=== PATIENT | male | born 1935 | race Caucasian/White ===

== ENCOUNTER → 2016-04-17 | Day surgery (SDC) | payer MEDICARE, BC ==
[~2016-04-17] VITALS: Ht 188 cm; Wt 100.3 kg
[~2016-04-17] MED LIST: ASPIRIN325 MG PO; CHILDREN'S CHEW81 MG PO; DELTASONE5 MG PO; DITROPAN5 MG PO; LIPITOR80 MG PO; LOPRESSOR25 MG PO; MULTI VITAMIN1 EACH PO; PLAVIX75 MG PO; PROTANDIM NRF PO; TYLENOL EXTRA500 MG PO; VASOTEC2.5 MG PO; VASOTEC5 MG PO; VITAMIN B-121000 MCG PO; VITAMIN D1000 UNIT PO; [UNRECOGNIZED DRUG - OTHER] PO
--- NOTE | ~2016-04-17 | OR ---
PATIENT'S NAME: [facility] AGE: 81 Y [address] ROOM: [place], [place] [address] LOCATION: [facility] ADMIT DATE: 04/17/2016 OR/Procedure Report DISCHARGE DATE: FAMILY PHYSICIAN: Eliu Vazquez MD ATTENDING PHYSICIAN: Sebastian Faust SURGEON: Sebastian Faust MD HEALTHCARE ECONOMICS MANAGER: DATE OF PROCEDURE: 04/17/2016 PREOPERATIVE DIAGNOSES: 1. Large bladder calculus causing obstructive voiding. 2. History of massive benign prostatic hypertrophy and bladder stones. 3. Prostate cancer. POSTOPERATIVE DIAGNOSES: 1. Large bladder calculus causing obstructive voiding. 2. History of massive benign prostatic hypertrophy and bladder stones. 3. Prostate cancer. PROCEDURE: Cystoscopy with cystolithotripsy. ANESTHESIA: General. INDICATION: This is an 81-year-old gentleman who had presented initially years ago with massive hypertrophy and associated bladder stones. He underwent a simple prostatectomy with removal of bladder stones. Interestingly, that tissue was benign. He has subsequently been diagnosed with prostate cancer in some of the residual tissue. He has been having increasing voiding symptoms. I had recommended diagnostic cystoscopy to rule out urethral stricture, bladder neck contracture, etc. What we found was a large stone impacted in his bladder neck. He presents at this time for treatment. DESCRIPTION OF PROCEDURE: Having obtained his informed consent, the patient was taken to the operating room. He was prepped and draped sterilely and in lithotomy position. General anesthesia was administered. A 21-Chinese cystoscope was assembled and guided into the urethra. The course of the urethra was unremarkable back to prostatic urethra which is mostly surgically absent. He does have some residual tissue. His veru and his sphincter are appreciated. The stone is floating at the base of his bladder. When I had scoped him previously, it was impacted in his bladder neck. Bladder examination was confirmed with a 70-degree lens. I then passed the shock pulse and we used ultrasonic lithotripsy to obliterate the stone and aspirate it. We have him rendered stone-free. I had also had some question PATIENT'S NAME: [facility] AGE: 81 Y [address] ROOM: [place], [place] [address] LOCATION: [facility] [place] ADMIT DATE: 04/17/2016 OR/Procedure Report DISCHARGE DATE: FAMILY PHYSICIAN: Eliu Vazquez MD ATTENDING PHYSICIAN: Sebastian Faust regarding his bladder neck, but the large scope passes easily. He does not have any significant bladder neck contracture. The bladder was drained. The case was concluded. The patient tolerated the procedure well. Blood loss was negligible. No specimens were sent. The patient returned to the outpatient recovery, awake and in stable condition. SEBASTIAN FAUST MD SF[facility]/modl /[id number] CC: Eliu Vazquez MD d: 04/17/162005 t: 04/18/16 0953, OPERATIVE SUMMARY
[2016-04-17 11:15] LABS: BASOPHIL % 0.4 %; EOSINOPHIL # 0.2 K/uL (0.0-0.5); EOSINOPHIL % 2.2 %; HEMATOCRIT 40.9 % (33.0-50.0); IMMATURE GRANULOCYTE % 0.1 %; LYMPHOCYTE # 1.9 K/uL (0.8-4.0); LYMPHOCYTE % 25.1 %; MCH 36.7 pg (27.0-34.0); MCHC 34.2 gm/dL (32.0-36.5); MCV 107.3 fl (83.0-98.0); MONOCYTE # 0.8 K/uL (0.0-1.0); MONOCYTE % 10.1 %; MPV 8.7 fl (9.4-12.4); NEUTROPHIL # (ANC) 4.7 K/uL (1.4-9.0); NEUTROPHIL % 62.1 %; NRBC % 0 /100WBC (0-0.00); PLATELET COUNT 225 K/uL (150-450); RBC 3.81 M/uL (3.50-5.50); RDW-CV 13.2 % (11.9-14.6); WBC 7.6 K/uL (4.0-11.0)
[2016-04-17 11:31] LABS: ALBUMIN 4.1 gm/dL (3.5-5.0); CALCIUM 8.6 mg/dL (8.5-10.5); CREATININE 1.2 mg/dL (0.6-1.3); TOTAL PROTEIN 7.3 g/dL (6.0-8.4)
== END ==
LOC: GPOC 04-13 14:00 → GSDC 10:42 → GPOC 11:00
PROVIDERS: Urology
PROC: 0TCB8ZZ Extirpation of Matter from Bladder, Via Natural or Artificial Opening Endoscopic (ICD-10-PCS; principal; 2016-04-17)
DX: N21.0 Calculus in bladder (principal); Z79.899 Other long term (current) drug therapy; Z79.52 Long term (current) use of systemic steroids; Z85.46 Personal history of malignant neoplasm of prostate
CPT/HCPCS: J1720; J1956; J2001; J2405; J7120

== ENCOUNTER → 2016-08-15 | Outpatient (CLI) | payer MEDICARE, BC ==
--- NOTE | ~2016-08-15 | ESTC ---
Cardiac Perfusion Imaging Demographics Patient Name ANA Phillips Gender Male Patient Number [id number] Race Visit Number [id number] Ethnicity Corporate ID Room Number Accession Number [id number] Height 71 inches Date of 1935 Weight 220 pounds Interpreting Rachell Asif MD Date of study 08/15/2016 Physician Supervising /CARLITOS Saleem NM Technologist Jaylyn Merchant APRN Ordering Physician Stress manufacturing production technician Stress ECG Reading Lin Saleem Nurse Becca Martinez RN Physician YANN The procedure was explained in detail to the patient. Risks, complications and alternative treatments were reviewed. Written consent was obtained. Medications Reviewed with Patient prior to Procedure. Procedure Procedure Type: Nuclear Stress Test:Exercise, Cardiolite Stress Test Procedure Start time: 08/15/2016 08:35 Indications: Shortness of Breath with Exertion. Risk Factors The patient risk factors include:physical activity, former tobacco use and family history of premature CAD. Conclusions Summary Cardiolite SPECT images demonstrate a moderate reversible defect of moderate severity involving the apex and inferoapical region. No evidence of underlying fixed defect. TID is markedly abnormal at 1.18 which may serve as a surrogate marker of ischemia. Gated images demonstrates preserved left ventricular systolic function without inducible wall motion abnormalities. LVEF is 59% Stress Protocols Resting ECG RSR with RBBB. Resting HR:87 bpm Resting BP:141/68 mmHg Pre-stress physical exam: Short of breath with walking. Stress ordered was lexiscan, patient wanted to try exercise. Stress Protocol:Exercise Peak HR:137 bpm HR response: Appropriate Peak BP:199/43 mmHg BP response: Appropriate Predicted HR: 138 bpm HR/BP product:29031 % of predicted HR: 99 Test duration:02:50 min Reason for termination:Target heart rate Exercise effort:Poor Perceived exertion:20 ECG Findings Sinus Tachycardia Arrhythmias NSVT. Rhythm changed to sam tachycardia for brief periods. Symptoms Complained of Severe shortness of breath at 1 minute exercise. HR became tachycardia within 40 seconds of exercise. Stress Interpretation Appropriate hemodynamic response to exercise. No significant ST-T wave changes with exercise. EKG portion is negative for ischemia by diagnostic criteria. The Darling Treadmill score was +2 .This corresponds to a moderate risk stress test. Stress supervision and interpretation provided by Karen Ceballos APRN . Imaging Results Applied corrections - Motion correction applied High risk findings Summed scores - Summed stress score: 11 - Summed rest score: 11 - Summed difference score: 0 Stress ejection Ejection fraction:58 % EDV :118 ml ESV :49 ml Stroke volume :69 ml LV mass :150 gr Imaging Protocols Rest Stress Isotope:Tc99m Sestamibi IV Isotope: Tc99m Sestamibi IV Isotope dose:14 mCi Isotope dose:42.6 mCi Date:08/15/2016 07:38 Date:08/08/2016 09:30 Technique: SPECT Technique: Gated Supine SPECT Supine Scan Time:45-60 minutes post Scan Time:45-60 minutes post injection injection Medical History Admission Data Admission date: 08/15/2016 Admission Time: 07:15 Hospital Status: Outpatient. Signatures dtt: Yefri Lovett (cardio) dtd: 08/15/16 0835 Physician Self Edit
== END | disposition disaster alternative care site (69) ==
LOC: GRAD 07:15
DX: R06.00 Dyspnea, unspecified (principal); Z87.891 Personal history of nicotine dependence; Z86.79 Personal history of other diseases of the circulatory system
CPT/HCPCS: A9500

== ENCOUNTER 2016-09-01 05:44 | Outpatient (CLI) | payer MEDICARE, BC ==
[~2016-09-01] VITALS: Ht 188 cm; Wt 98.8 kg
--- NOTE | ~2016-09-01 | CATH ---
Cardiac Diagnostic + PCI Report Demographics Patient Name ANA Darby Gender Male R Date of 1935 Age 81 year(s) Patient Number [id number] Date of Study 09/01/2016 Visit Number [id number] Room Number G63[address] [place] [id number] Ht 187.96 cm Wt 99.6 kg Referring George Saleem Primary Physician Physician MD Performing Rachell Asif MD Secondary Physician Physician Diagnostic Rachell Asif MD Assisting Physician Physician Interventional Rachell Asif MD Physician Cherry Picker Operator Physician Findings and Conclusions Diagnostic Findings and Conclusion 1 vessel CAD. Diagnostic Recommendations PCI RCA. Interventional Findings and Conclusion 0.014 Prowater + 0.014 All Star. 3.5 x 15 Emerge, 4 x 15 Emerge. Guideliner. 4 x 15 Promus to 4.2. Interventional Recommendations DAPT x 1 year. Routine post-angioseal. Procedure Description The patient was brought to the diagnostic cardiac catheterization-EP laboratory in the fasting, non-sedated state. Informed consent was obtained in the written and verbal form after the risks and benefits were explained. The patient had no further questions and agreed to proceed. The planned puncture-incision site(s) were shaved and prepped with ChloraPrep and draped in the usual sterile manner. Conscious sedation, supplemental oxygen, and pain control medications were delivered by a registered nurse under physician guidance. Surface ECG rhythm, blood pressure measurement, and pulse oximetry were monitored throughout the procedure. Arterial access. The access site was infiltrated with lidocaine. The vessel was entered with the Seldinger technique. A sheath was advanced into the vessel and used for catheter placement. Selective left coronary angiography. A catheter was advanced into the left coronary vessel ostium under Fluoroscopic guidance. Contrast was injected by hand. Images were obtained in multiple projections. Selective right coronary angiography. A catheter was advanced into the right coronary vessel ostium under fluoroscopic guidance. Contrast was injected by hand. Images were obtained in multiple projections. Left heart catheterization. A catheter was advanced across the aortic valve to the left ventricle under fluoroscopic guidance. Resting hemodynamics were obtained. Angioplasty and Stent Placement: A guiding catheter was used to intubate the vessel. A 0.14 wire was then used to cross the lesion. A balloon catheter was placed across the lesion and inflated. The balloon catheter was then removed. A Drug Eluting Stent was placed and inflated. Post placement angiograms were performed. Arterial artery hemostasis was achieved. The patient was transferred to a regular nursing floor via cart accompanied by a nurse. The patient left the laboratory in stable condition. Diagnostic Cath Status: Elective Interventional Cath Status: Elective Procedure Procedure Type Diagnostic procedure:Angiography:, Coronary Angios /[facility] PCI procedure:Drug Eluting Coronary Stent:, RCA Indications: Abnormal Stress Test. The procedure was explained in detail to the patient. Risks, complications and alternative treatments were reviewed. Written consent was obtained. Medications Reviewed with Patient prior to Procedure. Angiographic Findings Dominance: Right Cardiac Arteries and Lesion Findings LMCA: Normal (0% Stenosis).Large. LAD: Large proximal, [id number] 40%. Diagonal 1 medium, normal. Lesion on Mid LAD: 40% stenosis . LCx: Normal (0% Stenosis).Large, ND. Normal. OM 1 medium, normal. RCA: Large. PL medium, normal. PDA medium, normal. Lesion on Mid RCA: Proximal subsection.75% stenosis 15 mm length reduced to 0%. Pre procedure RUDY II flow was noted. Post Procedure RUDY III flow was present. The guidewire cross was successful.The lesion was diagnosed as a moderate risk lesion. Treatment results:Interventional treatment was successful. Devices used - Prowater Wire .014 x 180. Number of passes: 1. - Emerge Balloon 3.5 x 15. 1 inflation(s) to a max pressure of: 6 kyle. - Allstar Wire .014 x 190. Number of passes: 1. - Emerge Balloon 4.0 x 12. 2 inflation(s) to a max pressure of: 7 kyle. - Promus Premier 4.0 x 16 Stent. 1 inflation(s) to a max pressure of: 11 kyle. Coronary Tree Procedure Data Procedure Date Date: 09/01/2016Start: 08: AMEnd: 10:00 AM Entry Locations - Retrograde Percutaneous access was performed through the Right Femoral artery (Primary location). A 6 Fr sheath was inserted. Hemostasis was successfully obtained using Perclose ProGlide (Prieto). Closure Comments: Deployed by Familia Kay. Procedure Medications Order and Administration + + + + + !Time !Medication !Dosage !Route ! + + + + + !09/01/2016 08:24 !Versed !1 mg !I.V. ! !AM ! ! ! ! + + + + + !09/01/2016 08:26 !Fentanyl !50 mcg !I.V. ! !AM ! ! ! ! + + + + + !09/01/2016 08:32 !Oxygen !2 l/min !NC ! !AM ! ! ! ! + + + + + !09/01/2016 08:46 !Angiomax (Bivalirudin) !75 mg !I.V. bolus ! !AM !(ACC_5) ! ! ! + + + + + !09/01/2016 08:47 !Angiomax (Bivalirudin) !1.75 mg/kg/hr!I.V. bolus ! !AM !(ACC_5) ! ! ! + + + + + !09/01/2016 08:50 !Versed !0.5 mg !I.V. ! !AM ! ! ! ! + + + + + !09/01/2016 09:19 !Versed !0.5 mg !I.V. ! !AM ! ! ! ! + + + + + 09/01/2016 09:26 !Fentanyl !25 mcg !I.V. ! !AM ! ! ! ! + + + + + !09/01/2016 09:47 !Versed !1 mg !I.V. ! !AM ! ! ! ! + + + + + !09/01/2016 09:56 !Brilinta (Ticagrelor) !180 mg !P.O. ! !AM !(ACC_20) ! ! ! + + + + + !09/01/2016 09:56 !Angiomax (Bivalirudin) ! !I.V. bolus ! !AM !(ACC_5) ! ! ! + + + + + !09/01/2016 09:57 !Fentanyl !25 mcg !I.V. ! !AM ! ! ! ! + + + + + Devices Used - A6 Fr. BS JL 4 Diag. Catheterwas used for:Left coronary angiography. - A6 Fr. BS JR 4 Diag. Catheterwas used for:Right coronary angiography. - A6 Fr. BS Angled Pigtail Diag. Catheterwas used for:LV Pressures. - A6 Fr. JR4 Guide Catheterwas used for:RCA Intervention. - A6 Fr. 3DRC JJ Guide Catheterwas used for:RCA Intervention. - A6 Fr. Guidlinerwas used for:RCA Intervention.Unable to cannulate the vessel. - A6 Fr. AR1 guide catheterwas used for:RCA Intervention. - A6 Fr. Guidlinerwas used for:RCA Intervention. Contrast Material - Isovue [id number] ml Fluoroscopy Time: Diagnostic: 43:42 minutes. Total: 43:42 minutes. Fluoroscopy Dose: Diagnostic: 3363 mGy. Total: 3363 mGy. Estimated Blood Loss: 7 ml. Additional [facility] PCI Information PCI Indication:PCI for high risk Non-STEMI or unstable angina. Medical History Performed Procedures and Imaging Results - Stress testing with SPECT MPIwas performed. Results were: Positive. Risk/Extent of ischemia was: Intermediate risk. Allergies - No known allergies. Risk Factors The patient risk factors include:cerebrovascular disease, hypertension, family history of premature CAD, last creatinine: 1.3 mg/dl, creatinine clearance: 61.72 ml/min and former tobacco use. Admission Data Admission Date: 09/01/2016 Admission Time: 05:44 AM Admit Source: Other Insurance Payors: Medicare. Admission Medications + +------+------+ + + + + !Medication !Dosage!Times !Last !Last !Administered !Comments ! ! ! !Per !Delivery !Delivery ! ! ! ! ! !Day !Date !Time ! ! ! + +------+------+ + + + + !Beta ! ! ! ! !Yes ! ! !Tiesha ! ! ! ! ! ! ! !(any) ! ! ! ! ! ! ! + +------+------+ + + + + Clinical Evaluation Leading to Procedure - The patient's CAD presentation was assessed as: Unstable angina. 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 Anti-anginal medications were prescribed during the past two weeks. The medication is: Beta Blockers. Hemodynamics Condition: Rest O2 Consumption: Estimated: 283.20Heart Rate: 100 bpm Pressures (mmHg) +-----+ + !Site !Pressure ! +-----+ + !AO !156/69 (105) ! +-----+ + !LV !147/8 ,20 ! +-----+ + !LV !154/8 ,25 ! +-----+ + !AO !154/69 (105) ! +-----+ + !LV !153/8 ,24 ! +-----+ + !AO !169/88 (118) ! +-----+ + Valve Gradients and Areas + +---------+---------+---------+ +---------+ + !Valve !Peak !Mean !Area !Index !Flow !Source ! + +---------+---------+---------+ +---------+ + !Aortic !10 !14 ! ! ! ! ! + +---------+---------+---------+ +---------+ + !Aortic !10 !14 ! ! ! ! ! + +---------+---------+---------+ +---------+ + Shunts Oxygen Values O2 Capacity 172.72 O2 Consumption 283.2 Discharge Data Discharge Date: 09/02/2016 Hospital Status: Outpatient Signatures dtt: Yefri Lovett (cardio) dtd: 09/01/16 0827 Physician Self Edit
[~2016-09-01 05:44] MED LIST changes: -ASPIRIN325 MG PO; -CHILDREN'S CHEW81 MG PO; -LIPITOR80 MG PO; -PLAVIX75 MG PO; -VASOTEC2.5 MG PO
[2016-09-01] MEDS ORDERED: CHILDREN'S CHEW81 MG PO (06:42)
--- NOTE | 2016-09-01 18:47 | NUR ---
Significant Event: A/O X 3. HEART CATH VIA RT. GROIN, STENT TO RCA. SITE WITH C/D/I DRESSING AND SOFT TO TOUCH. AT 1PPROX. 1715, PT. C/O INCREASE IN SHORTNESS OF BREATH, SATS 97% ON ROOM AIR. RESTARTED 02 AT 2 LPM VIA NC. PT. C/O PRESSURE IN CHEST. SKIN W/D. NOTIFIED DR. MORALEZ, ORDERS GIVEN. AFTER PLACING ON 02 PT. FELT MUCH BETTER AND PRESSURE WAS RELIEVED. EKG OBTAINED. Follow up: CONT. TO [facility]ITER CARDIAC STATUS.
[2016-09-02 04:59] LABS: BASOPHIL % 0.3 %; EOSINOPHIL # 0.2 K/uL (0.0-0.5); EOSINOPHIL % 2.1 %; HEMATOCRIT 33.6 % (33.0-50.0); IMMATURE GRANULOCYTE % 0.4 %; LYMPHOCYTE # 0.8 K/uL (0.8-4.0); LYMPHOCYTE % 10.9 %; MCH 38.7 pg (27.0-34.0); MCHC 35.7 gm/dL (32.0-36.5); MCV 108.4 fl (83.0-98.0); MONOCYTE # 0.8 K/uL (0.0-1.0); MONOCYTE % 10.3 %; NEUTROPHIL # (ANC) 5.5 K/uL (1.4-9.0); NRBC % 0 /100WBC (0-0.00); PLATELET COUNT 188 K/uL (150-450); RDW-CV 12.4 % (11.9-14.6); WBC 7.3 K/uL (4.0-11.0)
[2016-09-02 05:19] LABS: ALBUMIN 3.2 gm/dL (3.5-5.0); ANION GAP 9.7 (10.0-19.0); CALCIUM 8.3 mg/dL (8.5-10.5); CREATININE 1.2 mg/dL (0.6-1.3); POTASSIUM 3.7 mMol/L (3.7-5.1); TOTAL BILIRUBIN 0.9 mg/dL (0.0-1.5); TOTAL PROTEIN 6.2 g/dL (6.0-8.4)
--- NOTE | 2016-09-02 05:22 | NUR ---
A/OX3. VSS on RA. Lung sounds are clear & diminished. Bowel sounds present. Cardiac diet. No c/o SOB or chest pain. Groin incision site is soft and dressing is dry and intact. Stand by assist.
[2016-09-02] MEDS ORDERED: ASPIRIN325 MG PO (09:36)
[2016-09-02] MEDS ORDERED: LIPITOR80 MG PO (09:37)
[2016-09-02] MEDS ORDERED: PLAVIX75 MG PO (09:37)
[2016-09-02] MEDS ORDERED: VASOTEC2.5 MG PO (09:41)
--- NOTE | 2016-09-02 10:50 | NUR ---
DISM.NOTE: A/O X 3. DAUGHTER AND AT BEDSIDE. REVIEW OF HOME MEDS AND NEW MEDS WITH HANDOUTS AND SIDE EFFECTS DISCUSSED. PRESCRIPTONS GIVEN. FOLLOW UP APPT. DIET/ ACTIVITY HOME INSTRUCTION POST GROIN HEART CATH. PT. AND FAMILY VOICED UNDERSTANDING,
== END 2016-09-02 10:50 | disposition disaster alternative care site (69) ==
LOC: GPOC 05:44 → GPCU 05:44 → GPOC 06:00 → GPCU 10:02 → GPOC 09-02 10:50
PROVIDERS: Internal Medicine Interventional Cardiology
PROC: 4A023N7 Measurement of Cardiac Sampling and Pressure, Left Heart, Percutaneous Approach (ICD-10-PCS; principal; 2016-09-01)
PROC: B216YZZ Fluoroscopy of Right and Left Heart using Other Contrast (ICD-10-PCS; 2016-09-01)
DX: I25.110 Atherosclerotic heart disease of native coronary artery with unstable angina pectoris (principal); I44.0 Atrioventricular block, first degree; I45.10 Unspecified right bundle-branch block; R94.31 Abnormal electrocardiogram [ECG] [EKG]
CPT/HCPCS: C1725; C1760; C1769; C1874; C1887; C9600; J0583; J1644; J2001; J2250; J3010; J7030; J7060; J7512